=== PATIENT | male | born 1975 ===

== ENCOUNTER 2018-01-16 13:27 | Emergency (ER) | payer BC ==
[2018-01-16 14:07] VITALS: BP 135/95
--- NOTE | 2018-01-16 14:38 | UC ---
Lower Extremity/Ankle HPI - HPI Summary HPI Summary: Patient states that about 3 weeks ago he pulled a muscle in his left calf jumping into a peripheral. After about a week it was much improved. Last Friday he went to jump off a diving board and got a sudden severe pain in that left calf again which she describes as "felt like I got shot in the muscle. " He notes that it is improved once again but not completely and he has some ongoing swelling. States that yesterday he started to get some pain in his left great toe as well. He self treated with some left ovary 100 mg tablets of ibuprofen and that is improving. He denies redness or warmth but reports concern about gout because father has history of gout. That particular areas had no injury and he denies any other arthralgia. - History of Current Complaint Chief Complaint: UCLowerExtremity Stated Complaint: LFT CALF/GREAT TOE PAIN Time Seen by Provider: 01/16/18 14:31 Hx Obtained From: Patient Pain Intensity: 5 Aggravating Factor(s): Ambulation - Left calf Alleviating Factor(s): Rest Able to Bear Weight: Yes - Risk Factors Gout Risk Factors: Age Over 40, Male Septic Arthritis Risk Factor: Negative - Allergies/Home Medications Allergies/Adverse Reactions: Allergies Allergy/AdvReac Type Severity Reaction Status Date / Time Penicillins Allergy Hives Verified 01/16/18 14:02 Home Medications: Home Medications Ibuprofen TAB* [Motrin TAB* 800 MG] 1 tab PO Q6H PRN 01/16/18 [History Confirmed 01/16/18] PMH/Surg Hx/FS Hx/Imm Hx Previously Healthy: Yes - Surgical History Surgical History: Yes Surgery Procedure, Year, and Place: T&A,CYST IN EYE REMOVED CHILD - Family History Known Family History: Positive: Other - gout - Social History Occupation: Employed Full-time Lives: With Family Alcohol Use: Daily Alcohol Amount: 3-4 beers Substance Use Type: None Smoking Status (MU): Never Smoked Tobacco - Immunization History Vaccination Up to Date: Yes Review of Systems Constitutional: Negative Skin: Negative Eyes: Negative ENT: Negative Respiratory: Negative Cardiovascular: Negative Gastrointestinal: Negative Genitourinary: Negative Motor: Negative Neurovascular: Negative Musculoskeletal: Arthralgia - Left great toe, Calf Tenderness - Left Neurological: Negative Psychological: Negative Is Patient Immunocompromised?: No All Other Systems Reviewed And Are Negative: Yes Physical Exam Triage Information Reviewed: Yes Appearance: Well-Appearing Vital Signs: Initial Vital Signs Temp 98.4 F 01/16/18 13:58 Pulse 66 01/16/18 13:58 Resp 15 01/16/18 13:58 BP 135/95 01/16/18 13:58 Pulse Ox 100 01/16/18 13:58 Vital Signs Reviewed: Yes Eyes: Positive: Conjunctiva Clear ENT: Positive: Normal ENT inspection Neck: Positive: Supple, Nontender Respiratory: Positive: Lungs clear, Normal breath sounds Cardiovascular: Positive: RRR, No Murmur Abdomen Description: Positive: Nontender, No Organomegaly, Soft Bowel Sounds: Positive: Present Musculoskeletal: Positive: Other: - Left lower extremity exam on comparison to the right shows some mild to moderate isolated swelling to the. There is no swelling above and below that area. There is no erythema. The left medial gastrocnemius is exquisitely tender. There are no cords plantar flexion of the foot with nonweightbearing exacerbates the medial calf pain. Area above the calf as well as left ankle are unremarkable. Left foot exam: MTP T joint compared to the right appears to be larger but there is no erythema or warmth or tenderness. Rest of that left foot is unremarkable and has full sensorivascular motor function. Neurological: Positive: Alert Psychological: Positive: Age Appropriate Behavior Skin Exam: Normal Lower Extremity Course/Dx - Course Course Of Treatment: The isolated pain to the left base of the left great toe pretreated with Motrin is not concerning for a septic joint or fracture. This could be a possible osteo arthritis issue versus an acute dental that had a hard been treated after onset. No acute treatment indicated at this time. The exam is consistent with a medial gastrocnemius muscle strain. We will treat with clifton, nonweightbearing(patient has his own crutches) and anti-inflammatory with orthopedic follow-up. Patient can have a repeat exam of his great toe at the same time. - Differential Dx/Diagnosis Provider Diagnoses: Left gastrocnemius muscle strain. Arthralgia base left great toe. Discharge - Sign-Out/Discharge Documenting (check all that apply): Discharge/Admit/Transfer - Discharge Plan Condition: Stable Disposition: HOME Patient Education Materials: Muscle Strain (DC), Arthralgia (ED) Referrals: Rodney Cam MD [Medical Doctor] - 3 Days Additional Instructions: LEFT GASTROCNEMIUS MUSCLE STRAIN. ARTHRALGIA LEFT GREAT TOE USE YOUR CRUTCHES AND NO WEIGHT ON LEFT LEG UNTIL CLEARED BY ORTHOPEDICS. [place] LEFT CALF DURING DAY. REMOVE AT NIGHT. TAKE YOUR 800MG MOTRIN EVERY 8 HOURS X 5 DAYS. - Billing Disposition and Condition Condition: STABLE Disposition: Home
== END 2018-01-16 15:01 | disposition home or self-care (01) ==
LOC: UCCORT 13:27
DX: S83.8X2A Sprain of other specified parts of left knee, initial encounter (principal); Y93.39 Activity, other involving climbing, rappelling and jumping off; Y92.34 Swimming pool (public) as the place of occurrence of the external cause; Z88.0 Allergy status to penicillin
CPT/HCPCS: 99202; G0463